=== PATIENT | male | born 1985 | race Two or more races ===

== ENCOUNTER 2025-01-28 01:55 | Inpatient (IN) | payer MEDICAID ==
[~2025-01-28] VITALS: Ht 170.2 cm; Wt 85.9 kg
[2025-01-29] VITALS (13 sets, daily range): BP systolic 117–146; BP diastolic 75–107; PULSE 84–100; RESP 16–23; TEMP 97.4–98.4; O2SAT 92–100
[2025-01-29] MEDS ORDERED: FURO20TA4 PO (02:30)
[2025-01-29] MEDS ORDERED: MORPHINE SULFATE INJ 2 MG/ml SYRG IV PRN (04:00)
[2025-01-29] MEDS: PANTOPRAZOLE 40 MG/10 ML VIAL INJ IV ONE (04:41)
[2025-01-29 06:09] LABS: Basophils # (auto) 0.1 10 ^3/uL (0-0.2); Eosinophils # (auto) 0.2 10 ^3/uL (0-0.8); Hemoglobin 14.2 g/dL (13.5-17.5); Neutrophils # (auto) 2.5 10 ^3/uL (1.6-8.6); Nucleated Red Blood Cells % 0.2 %
[2025-01-29 06:14] LABS: Eosinophils % (auto) 3.1 % (0.0-7.0); Hematocrit 41.2 % (41.0-53.0); Lymphocytes # (auto) 2.9 10 ^3/uL (0.4-5.4); Lymphocytes % (auto) 44.2 % (10.0-50.0); Mean Corpuscular Hemoglobin 26.6 pg (28.0-32.0); Mean Corpuscular Hgb Conc. 34.4 g/dL (32.0-36.0); Mean Corpuscular Volume 77.2 fL (80.0-100.0); Monocytes # (auto) 0.9 10 ^3/uL (0-1.3); Monocytes % (auto) 13.4 % (0.0-12.0); Neutrophils % (auto) 38.3 % (37.0-80.0); Platelet Count (auto) 254 10^3/uL (140-450); Red Blood Cells 5.33 10^6/uL (4.5-5.90); Red Cell Distribution Width 14.3 % (11.8-14.3); White Blood Cell 6.6 10^3/uL (4.4-10.8)
[2025-01-29 06:33] LABS: INR 1.02 (0.9-1.15); Prothrombin Time 10.8 sec (9.3-11.8)
[2025-01-29 06:47] LABS: Anion Gap 8 (5-15); Aspartate Aminotransferase 26 U/L (13-40); BUN/Creatinine Ratio 11.3 (10.0-20.0); Blood Urea Nitrogen 14 mg/dL (9-23); Calcium 9.1 mg/dL (8.7-10.4); Carbon Dioxide 27 mmol/L (20-31); Chloride 106 mmol/L (98-107); Glucose 102 mg/dL (74-106); Magnesium 2.1 mg/dL (1.6-2.6); Potassium 4.3 mmol/L (3.5-5.1); Sodium 141 mmol/L (136-145); Total Protein 6.3 g/dL (5.7-8.2)
[2025-01-29 06:48] LABS: Bilirubin, Total 0.6 mg/dL (0.2-1.0)
[2025-01-29 06:49] LABS: Alanine Aminotransferase 87 U/L (7-40); Alkaline Phosphatase 38 U/L (46-116)
--- NOTE | 2025-01-29 06:55 | DVHHPRES ---
History of Present Illness Resident Creating Document: OCTAVIO KERNSAXEL RESIDENT History of Present Illness Patient is a 39-year-old male with no significant past medical history was transferred from [facility] after being admitted there chest pain and shortness of breath. Patient reports that he was admitted in the [facility] about a month ago with a similar complaint when they diagnosed him with congestive heart failure with echo showing LVEF 15-20%, moderately enlarged right ventricle, moderately dilated left atrium and the patient was sent home on Lasix. He reported to be doing fine until the 26 of January when he started having chest pain which he described as chest tightness has a someone was standing on his chest, occurred while he was at rest following which he went to the hospital for further evaluation. Patient is being transferred to [facility] for a possible left heart catheterization Past medical history: None Past surgical history: None Social history: Patient smokes half a pack of cigarettes per day, heavy alcohol use about 5-6 drinks per day, denies marijuana and any other drug use Home medications: Lasix recently prescribed 20 mg per day Review of Systems Review of Systems Seen and examined at the bedside Denies chest pain, shortness of breath, palpitations Denies nausea vomiting abdominal pain Allergies: Coded Allergies: Penicillins (Verified Allergy, Unknown, 01/29/25) Medications Current Medications Medications Dose Ordered Sig/Adilene Route Start Time Stop Time Status Last Admin Dose Admin Nitroglycerin 0.4 mg Q5MINP PRN SL 01/29/25 04:00 Morphine Sulfate 2 mg Q30M PRN IV 01/29/25 04:00 Aspirin 81 mg DAILY PO 01/29/25 10:00 Exam Vital Signs Vital Signs Date Time Temp Pulse Resp B/P (MAP) Pulse Ox O2 Delivery O2 Flow Rate FiO2 01/29/25 05:00 97.6 89 19 117/90 (99) 97 97.6 01/29/25 02:13 Room Air* 0 21 Exam Gen - no pallor, no icterus, no cyanosis, no clubbing, no LAD, no edema . Skin - Patients skin is warm and dry. HEENT - normocephalic, atraumatic, moist mucous membranes. Neck - full ROM, no LAD, no JVD Pulmonary - B/L equal breath sounds, no crackles, no wheezing, no stridor. cardiovascular - regular S1,S2 heard, no added sounds, no murmurs heard. peripheral pulses normal radial 2+, pedal 2+. capillary refill normal <2 secs. GI - soft, nontender abdomen. no hepatospleenomegaly. Bowel sounds normoactive Neurological - Patient is A/O X 3 . Bilateral upper extremity strength 5/5, bilateral lower extremity strength 5/5, no facial droop, normal speech, no tremor, no sensory deficiets. Labs/Xrays Labs Test 01/29/25 05:13 Range/Units White Blood Count 6.6 4.4-10.8 10^3/uL Red Blood Count 5.33 4.5-5.90 10^6/uL Hemoglobin 14.2 13.5-17.5 g/dL Hematocrit 41.2 41.0-53.0 % Mean Corpuscular Volume 77.2 L 80.0-100.0 fL Mean Corpuscular Hemoglobin 26.6 L 28.0-32.0 pg Mean Corpuscular Hemoglobin Concent 34.4 32.0-36.0 g/dL Red Cell Distribution Width 14.3 11.8-14.3 % Platelet Count 254 140-450 10^3/uL Mean Platelet Volume 8.9 6.9-10.8 fL Neutrophils (%) (Auto) 38.3 37.0-80.0 % Lymphocytes (%) (Auto) 44.2 10.0-50.0 % Monocytes (%) (Auto) 13.4 H 0.0-12.0 % Eosinophils (%) (Auto) 3.1 0.0-7.0 % Basophils (%) (Auto) 1.0 0.0-2.0 % Neutrophils # (Auto) 2.5 1.6-8.6 10 ^3/uL Lymphocytes # (Auto) 2.9 0.4-5.4 10 ^3/uL Monocytes # (Auto) 0.9 0-1.3 10 ^3/uL Eosinophils # (Auto) 0.2 0-0.8 10 ^3/uL Basophils # (Auto) 0.1 0-0.2 10 ^3/uL Nucleated Red Blood Cells 0.2 % Assessment/Plan Assessment/Plan Acute chest pain, possible ACS Heart failure with reduced ejection fraction, no exacerbation ? Ischemic cardiomyopathy - chest x-ray pending - aspirin - cardiology consulted, Dr. Florian accepted the patient for possible left heart catheterization - NPO - PT PTT pending PUD prophylaxis: Protonix Goals of care discussed with the patient for over 27 minutes. Full code Time spent: 35 minutes Plan discussed with Dr. He Plan discussed with: Patient My Orders Orders - MORALES KERNS Procedure Category Date Status Time Admit ADMIT 01/29/25 Transmitted 03:59 Nitroglycerin PHA 01/29/25 In Process Sublingual (Ntrostat 04:00 Morphine Sulfate PHA 01/29/25 In Process Injection 04:00 Oxygen By Nasal RT 01/29/25 Transmitted Cannula 03:59 Stat Ekg For Chest MARIA C 01/29/25 In Process Pain 03:59 Notify Md Of Changes MARIA C 01/29/25 In Process From Base 03:59 Events Traffic Controller For [facility] 01/29/25 In Process 24 Hours 03:59 Emergency Dysrhythmia [facility] 01/29/25 In Process Protocol 03:59 Rhythm Strips Once [facility] 01/29/25 In Process Every Shift 03:59 Chest Xray 1 View XY 01/29/25 Logged 04:01 Echo 2d Mode Cardiac US 01/29/25 Logged DOP 04:01 Electrocardigram EKG 01/29/25 Logged 04:01 Comprehensive LAB 01/29/25 In Process Metabolic Panel 04:01 PTPTT LAB 01/29/25 In Process 04:01 Thyroid Stimulating LAB 01/29/25 In Process Hormone 04:01 Magnesium LAB 01/29/25 In Process 04:01 Lipid Panel LAB 01/30/25 Verified 04:00 Aspirin Tablet PHA 01/29/25 In Process 10:00 Urinalysis LAB 01/29/25 Logged 04:01 Drug Screen LAB 01/29/25 Logged 04:01 * Cardiology Consult CONS 01/29/25 Transmitted 04:01 Npo (Nothing By DIET 01/29/25 Transmitted Mouth) Diet Breakfast Mrsa Screen CINDI 01/29/25 Logged 04:32 Date of Service: Jan 29, 2025 Billing Provider: KEMI HE MD Common Visit Codes: [id number] INP/OBS CARE (HIGH) Secondary Visit Codes: [id number] CARE PLAN 30 MINUTES MORALES KERNS RESIDENT Jan 29, 2025 06:55
[2025-01-29] MEDS: ATORVASTATIN 20 MG TAB PO ONE (07:30)
--- NOTE | 2025-01-29 08:21 | DVHINCON2 ---
Date of service: Jan 29, 2025 History of Present Illness HPI Patient is a 39-year-old gentleman who originally presented to [facility] for chest pain and shortness of breath. Over there, the patient had a nuclear stress test and the result was abnormal (inferior ischemia) and the patient was transferred to this facility for further care/cardiac catheterization. It is of note that the patient is known to have heart failure and never had ischemic workup done before. Past history also includes alcohol and substance abuse. In [facility], BNP was 313. D-dimer was 0.71. Troponin (regular type) was 0.04-0.03. Urine toxicology was positive for opiates. Echocardiogram of January 27, 2025 (performed in [facility] in the hospital) revealed ejection fraction of 20-25%, stage III diastolic dysfunction, [id number] PI/TR/MR, right ventricular systolic pressure of 52 mm Hg. Chest x-ray in [facility] revealed mild cardiomegaly. CT angio of the lungs in [facility] ruled out pulmonary emboli. Home Meds Reported Medications Furosemide (Furosemide) 20 Mg Tab, 0.5 TAB PO QAM 01/29/25 Past Medical History Others Past medical history includes hypertension, heart failure, hypothyroidism, alcohol and substance abuse. Patient Family History: Patient reports no known family medical history. Smoker: Positive Alocohol: Moderate Drugs: Amphetimines Lives with: With family Review of Systems Constitutional: No symptom reported Ears, Nose, & Throat: No symptom reported Pulmonary/Respiratory: Dyspnea Cardiovascular: Chest Pain All Other Systems 14 point review of system was performed. Relevant findings as per above and as per HPI. Otherwise negative. H&P Exam Vital Signs Vital Signs Date Time Temp Pulse Resp B/P (MAP) Pulse Ox O2 Delivery O2 Flow Rate FiO2 01/29/25 05:00 97.6 89 19 117/90 (99) 97 97.6 01/29/25 02:13 Room Air* 0 21 General Appeara: Well developed Head Exam: Normal inspection Neck Exam: Normal inspection Eye Exam: bilateral eye PERRL Mouth: Normal Inspection Pulmonary/Respiratory: Lungs clear Cardiovascular/Chest: Normal inspection, Regular rate, Systolic murmur Peripheral Pulses: 2+ carotid (R), 2+ carotid (L), 2+ femoral (R), 2+ femoral (L), 2+ dorsalis pedis (R), 2+ dorsalis pedis (L), 2+ Radial (R), 2+ Radial (L) Abdominal Exam: Normal bowel sounds, Soft Neuro/Mental St: Alert, Oriented Appearance: Appropriate appearance Eye contact/ Speech: Cooperative Labs/Xrays Labs Test 01/29/25 05:13 Range/Units White Blood Count 6.6 4.4-10.8 10^3/uL Red Blood Count 5.33 4.5-5.90 10^6/uL Hemoglobin 14.2 13.5-17.5 g/dL Hematocrit 41.2 41.0-53.0 % Mean Corpuscular Volume 77.2 L 80.0-100.0 fL Mean Corpuscular Hemoglobin 26.6 L 28.0-32.0 pg Mean Corpuscular Hemoglobin Concent 34.4 32.0-36.0 g/dL Red Cell Distribution Width 14.3 11.8-14.3 % Platelet Count 254 140-450 10^3/uL Mean Platelet Volume 8.9 6.9-10.8 fL Neutrophils (%) (Auto) 38.3 37.0-80.0 % Lymphocytes (%) (Auto) 44.2 10.0-50.0 % Monocytes (%) (Auto) 13.4 H 0.0-12.0 % Eosinophils (%) (Auto) 3.1 0.0-7.0 % Basophils (%) (Auto) 1.0 0.0-2.0 % Neutrophils # (Auto) 2.5 1.6-8.6 10 ^3/uL Lymphocytes # (Auto) 2.9 0.4-5.4 10 ^3/uL Monocytes # (Auto) 0.9 0-1.3 10 ^3/uL Eosinophils # (Auto) 0.2 0-0.8 10 ^3/uL Basophils # (Auto) 0.1 0-0.2 10 ^3/uL Nucleated Red Blood Cells 0.2 % Prothrombin Time 10.8 9.3-11.8 sec Prothrombin Time INR 1.02 0.9-1.15 Activated Partial Thromboplast Time 25.0 24.5-34.5 SEC Sodium Level 141 136-145 mmol/L Potassium Level 4.3 3.5-5.1 mmol/L Chloride Level 106 98-107 mmol/L Carbon Dioxide Level 27 20-31 mmol/L Anion Gap 8 5-15 Blood Urea Nitrogen 14 9-23 mg/dL Creatinine 1.24 0.700-1.30 mg/dL Glomerular Filtration Rate Calc 76 >90 mL/min BUN/Creatinine Ratio 11.3 10.0-20.0 Serum Glucose 102 74-106 mg/dL Calcium Level 9.1 8.7-10.4 mg/dL Magnesium Level 2.1 1.6-2.6 mg/dL Total Bilirubin 0.6 0.2-1.0 mg/dL Aspartate Amino Transferase (AST) 26 13-40 U/L Alanine Aminotransferase (ALT) 87 H 7-40 U/L Alkaline Phosphatase 38 L 46-116 U/L Troponin I High Sensitivity 23 </=54 ng/L B-Type Natriuretic Peptide 238.01 0-100 pg/mL Total Protein 6.3 5.7-8.2 g/dL Albumin 4.0 3.2-4.8 g/dL Thyroid Stimulating Hormone (TSH) 5.87 H 0.55-4.78 uIU/mL Assessment/Plan Plan Patient is a 39-year-old gentleman who originally presented to [facility] for chest pain and shortness of breath. Over there, the patient had a nuclear stress test and the result was abnormal (inferior ischemia) and the patient was transferred to this facility for further care/cardiac catheterization. It is of note that the patient is known to have heart failure and never had ischemic workup done before. Past history also includes alcohol and substance abuse. In [facility], BNP was 313. D-dimer was 0.71. Troponin (regular type) was 0.04-0.03. Urine toxicology was positive for opiates. Echocardiogram of January 27, 2025 (performed in [facility] in the hospital) revealed ejection fraction of 20-25%, stage III diastolic dysfunction, [id number] PI/TR/MR, right ventricular systolic pressure of 52 mm Hg. Chest x-ray in [facility] revealed mild cardiomegaly. CT angio of the lungs in [facility] ruled out pulmonary emboli. Not in acute distress. No JVD. Mucosa is pink and wet. No carotid bruit. Lungs are clear to auscultation. Cardiac: Regular, no thrill/gallop. Systolic murmur 2/6 in the apex is heard. Abdomen is soft. Bowel sound is positive. There is no gross mass/hepatomegaly. Extremities do not reveal edema. Past medical history includes hypertension, heart failure, hypothyroidism, alcohol and substance abuse. Creatinine: 1.24 Potassium: 4.3 Troponin (high sensitive): 23 BNP: 231.01 Patient is a 39-year-old gentleman who presented with chest discomfort to other facility. Is known to have heart failure. Nuclear stress test performed in [facility] revealed inferior ischemia. Patient has never had previous ischemic workup. Was sent to our facility for ischemic workup/cardiac catheterization Abnormal nuclear stress test Systolic heart failure Chest discomfort Hypertension Substance abuse Alcohol abuse Cardiac suggestion for management: Manage on telemetry Follow-up electrolytes and kidney function tests and correct abnormalities Cardiac catheterization Guideline directed medical therapy for systolic heart failure is advised Further evaluation and management depends on the above and clinical course Thank you for consultation A total of 75 minutes was spent reviewing the patient record, examining the patient, making a diagnostic and therapeutic plan, discussing this plan with medical personnel, following up on diagnostic studies and following the patient for clinical stability excluding any and all procedures. At least 50% of this time was spent in direct, wjgy-[id number] contact. Thank you for allowing me to participate in this patient's care. Further recommendations will depend on patient's clinical course. Please do not hesitate to contact me if you have any questions or concerns. This medical document was created using electronic medical record system with [employer] computerized dictation system. Although this document has been carefully reviewed, there may still be some phonetic and typographical errors. These areas are purely typographical due to the imperfection of the software programs, and do not reflect any compromise in the patient's medical care. Plan discussed with: Patient, Other (Nurse) TERRELL SHI MD Jan 29, 2025 08:21
[2025-01-29] MEDS: IODIXANOL 320MG/ML 100ML BTL IV ONE (09:28)
[2025-01-29] MEDS: VERAPAMIL 2.5MG/ML INJ 2ML VIAL IV ONE (09:30)
[2025-01-29] MEDS: fentaNYL CITRATE 100 MCG/2 ML VL ONE (09:30)
[2025-01-29] MEDS: ANGIOMAX 250 MG VIAL IV ONE (09:30)
[2025-01-29] MEDS: LIDOCAINE 2%HCL (LOCAL ANESTH.) INJ 20ML MDV ONE (09:31)
[2025-01-29] MEDS: SODIUM CHL 0.9% 0 ML ONE (09:31)
[2025-01-29] MEDS: MIDAZOLAM HCL 2MG/2ML 2ml VIAL (1mg/ml) ONE (09:31)
[2025-01-29] MEDS: ASPirin 81 mg TAB PO SCH (10:00)
--- NOTE | 2025-01-29 10:59 | DVHOP2 ---
Operative Report Procedures performed: Left heart catheterization and bilateral coronary angiogram Moderate sedation Diagnosis: No angiographic evidence for epicardial coronary artery disease (normal coronaries) LVEDP of 20 mm Hg Known systolic heart failure Nonischemic cardiomyopathy Cardiac suggestion for management: Optimized medical therapy Guideline directed medical therapy for systolic heart failure Consider LifeVest Lifestyle and risk factor modifications Findings: LVEDP: 20 mm Hg There was no transaortic valve pressure gradient Left main was coming off the left sinus of Valsalva. It was free of disease. Ramus intermedius: Ramus intermedius was a very large branching vessel and came off the left main. It was free of disease throughout its course and branches. Lad: Lad was coming off the left main. It was free of disease throughout its course and branches LCX: LCX was coming off the left main. It was free of disease throughout its course and branches. RCA: RCA was coming off the right sinus of Valsalva. It was a dominant vessel and provided RPDA. RCA throughout its course and branches was free of disease. Presentation: Patient is a 39-year-old gentleman who is known to have systolic heart failure. He was in [facility]. He was admitted there for chest discomfort. Echocardiogram revealed significantly reduced systolic function. Nuclear stress test was performed which questioned inferior ischemia. Patient was sent to our facility for ischemic workup/cardiac catheterization. Procedure: After obtaining informed consent, the patient was brought to the hemodialysis lab technician. He was prepped and draped in sterile fashion. Right radial artery was used for access site. 2 mg of Versed and 50 mcg of fentanyl were used for moderate sedation. Using modified Seldinger technique and under fluoroscopy guidance, the right radial artery was accessed and a 6 Italian slender sheath was inserted into it. 2.5 mg of verapamil and 100 mcg of nitroglycerin were given as a cocktail into right radial sheath. A 5 Italian tiger 4 diagnostic catheter was used to perform left heart catheterization (obtaining pressures) and bilateral coronary angiography. There was no indication for any transcatheter revascularization. Coronaries were free of disease. Patient tolerated the procedure with no complication. There was no dissection/hematoma/perforation. Total bleeding was less than 5 mL. Right radial artery access site was managed by deploying a TR band. Fluoroscopy time: 2.3 minutes contrast: 30 mL of TaiipaTERRELL Green MD Jan 29, 2025 10:59
[2025-01-29] MEDS: HEPARIN SODIUM (PORCINE) 5000 UNITS/ML 1ML VIAL ONE (11:03)
--- NOTE | 2025-01-29 13:57 | DVH ---
CHEST RADIOGRAPH Indication: chest pain, SOB Technique: Single frontal view of the chest was obtained Comparison: None FINDINGS: Lines and Tubes: None Lungs: No focal consolidation. Pleura: No effusion. No pneumothorax. Cardiomediastinal contours: Cardiomegaly Bones: No acute osseous abnormality. IMPRESSION: No acute cardiopulmonary disease.
[2025-01-29] MEDS: FUROSEMIDE 20 MG/2 ML VIAL IV ONE (16:44)
[2025-01-29] MEDS: METOPROLOL TARTRATE 25 MG TAB PO ONE (16:45)
[2025-01-29] MEDS: HYDROcodone-ACET 5/325MG TAB PO PRN (16:46)
[2025-01-29] MEDS: SPIRONOLACTONE 25 MG TAB PO ONE (16:47)
--- NOTE | 2025-01-29 20:14 | DVHPNRES ---
Progress Note Date Seen: Jan 29, 2025 Resident Creating Document: CLARICE BECK SONA Has the PT tested + for MRSA If YES, has PT been informed?: No Medical Necessity Reason Pt with a Central, PICC or Fol: No Subjective Review of Systems Patient seen and examined at the bedside. Patient is still complaining of mild chest discomfort Patient reports: No new complaints, Feels better Changes from previous H/P or p: Changes Objective vital signs Vital Sign Date Time Temp Pulse Resp B/P (MAP) Pulse Ox O2 Delivery O2 Flow Rate FiO2 01/29/25 16:45 101 117/85 01/29/25 16:30 98.0 20 100 98.0 01/29/25 08:00 Room Air* 0 21 Total Intake and Output 01/28/25 01/28/25 01/29/25 15:00 23:00 07:00 Intake Total 0 ml Balance 0 ml medications Current Medications Medications Dose Ordered Sig/Adielne Route Start Time Stop Time Status Last Admin Dose Admin Nitroglycerin 0.4 mg Q5MINP PRN SL 01/29/25 04:00 Morphine Sulfate 2 mg Q30M PRN IV 01/29/25 04:00 Aspirin 81 mg DAILY PO 01/29/25 10:00 Atorvastatin Calcium 80 mg HS PO 01/30/25 22:00 Furosemide 20 mg DAILY IV 01/30/25 10:00 Spironolactone 12.5 mg DAILY PO 01/30/25 10:00 Sacubitril/ Valsartan 1 tab BID PO 01/29/25 22:00 Metoprolol Tartrate 12.5 mg BID PO 01/29/25 22:00 Empaglifozin 10 mg DAILY PO 01/30/25 10:00 Acetaminophen/ Hydrocodone Bitart 1 tab Q4HPRN PRN PO 01/29/25 16:15 01/29/25 16:46 1 TAB Examination General Appearance: Alert, Oriented X3, Cooperative, No acute distress HEENT: Atraumatic, PERRLA, EOMI, Mucous membrane moist/pink Respiratory: Clear to auscultation, Normal air movement Cardiovascular: Regular rate, Normal S1, Normal S2, No murmurs, no chest wall tenderness Abdominal: Normal bowel sounds, Soft, No tenderness, No hepatospenomegaly, No masses Extremities: No clubbing, No cyanosis, No edema, Normal pulses, No tenderness/swelling Skin: No rashes, No breakdown, No significant lesion Neuro: Normal gait, Normal speech, Strength at 5/5 X4 ext, Normal tone, Sensation intact, Cranial nerves 3-12 NL, Reflexes 2+ Psych/Mental Status: Mental status NL, Mood NL laboratory and microbiology Laboratory Tests 01/29/25 05:13 Test 01/29/25 05:13 Range/Units Serum Glucose 102 74-106 mg/dL Labs and/or images reviewed: Labs reviewed by me, Image(s) reviewed by me Problem List/Assessment/Plan Problem List/Assessment/Plan Chest pain, likely due to heart failure Acute on chronic systolic heart failure Transaminitis History of disorder * Per [facility] record, stress test showed inferior wall ischemia, chest CT angio was normal * EKGs shows normal sinus rhythm and no significant ST or T-wave changes * Serial trop I and BNP are a with a normal limits * Per [facility], echo from 1 month back showed LVEF 20-25% Plan/recommendation * Cardiology consulted, performed left heart catheterization, normal coronary arteries * IV diuretic Lasix 20 mg daily * GDM D, Jardiance 10 mg, spironolactone 12.5 mg daily, Entresto b.i.d. and metoprolol daily * Check echocardiogram DIET: Cardiac diet DVT PROPHYLAXIS: Lovenox GI PROPHYLAXIS:: Protonix CODE STATUS: Goal of care discussed for more than 18 minutes, full code DISPOSITION: Telemetry Patient's status and plan discussed with the patient. Case discussed with Dr. Lelsie. Plan discussed with: Patient, Other (RN) My Orders My Orders Orders - CLARICE BECK Procedure Category Date Status Time Atorvastatin (Lipitor) PHA 01/30/25 In Process 22:00 Furosemide Injection PHA 01/30/25 In Process (Lasix Injection) 10:00 Spironolactone PHA 01/30/25 In Process (Aldactone) 10:00 Sacubitril-Valsartan PHA 01/29/25 In Process (Entresto 24-26 Mg 22:00 Metoprolol Tartrate PHA 01/29/25 In Process Tablet (Lopressor Ta 22:00 Empagliflozin PHA 01/30/25 In Process (Jardiance) 10:00 Cardiac DIET 01/29/25 Transmitted Diet-2gna,Lofat,Lochol Lunch Hydrocodone-Acet PHA 01/29/25 In Process 5/325mg Tab ([place] 16:15 Date of Service: Jan 29, 2025 Billing Provider: EVAN LESLIE MD Common Visit Codes: [id number] INP/OBS CARE(HIGH) CLARICE BECK Jan 29, 2025 20:14 EVAN LESLIE MD Feb 02, 2025 14:41
[2025-01-29] MEDS: NITROGLYCERIN 0.4 MG SL TAB SL PRN (20:16)
[2025-01-29] MEDS: ENOXAPARIN SOD 40 MG/0.4 ML SYRINGE SC ONE (20:22)
--- NOTE | 2025-01-29 20:45 | ECG ---
[facility] Test Date: 2025-01-29 Test Time: 20:43:50 Pat Name: LIONEL HARTMAN Department: Room: 0296T B Gender: M Faa Certified Powerplant Mechanic: ROULA : 1985 Requested By: MORALES KERNS Order Number: [id number] Reading MD: Nav Ramos Measurements Intervals Elmore Rate: 89 P: 3 LA: 142 QRS: 3 QRSD: 77 T: -83 QT: 460 QTc: 560 Interpretive Statements Sinus rhythm Probable left atrial enlargement Left ventricular hypertrophy Inferior infarct, old Anterior Q waves, possibly due to LVH Lateral leads are also involved Prolonged QT interval Electronically Signed On 02-03-2025 20:16:35 PDT by Nav Ramos Please click the below link to view image of tracing.
[2025-01-29] MEDS: METOPROLOL TARTRATE 25 MG TAB PO SCH (21:15)
[2025-01-29] MEDS: SACUBITRIL-VALSARTAN 24mg/26mg TAB PO SCH (21:15)
[2025-01-29] MEDS ORDERED: SACUBITRIL-VALSARTAN 24mg/26mg TAB PO SCH (22:00)
[2025-01-29 23:19] LABS: Urine Bacteria None Seen /hpf (None Seen)
[2025-01-29 23:37] LABS: Urine Blood Negative /uL (Negative); Urine Clarity Clear (Clear); Urine Color Colorless (Yellow); Urine Protein, UAD Negative (Negative); Urine Specific Gravity 1.005 (1.001-1.035); Urine Squamous Epithelial Cell None Seen /hpf (<5); Urine Urobilinogen Normal (Negative); Urine WBC < 1 /HPF (0-3)
[2025-01-29 23:44] LABS: Benzodiazephine Screen, Urine Pos (NEGATIVE)
[2025-01-29 23:45] LABS: Amphetamine Screen, Urine Neg (NEGATIVE); Barbiturate Scree,Urine Neg (NEGATIVE); Cannabinoid Screen, Urine Neg (NEGATIVE); Cocaine Screen, Urine Neg (NEGATIVE); Opiate Scree,Urine Neg (NEGATIVE); Phencyclidine Screen, Urine Neg (NEGATIVE)
[2025-01-30 01:00] VITALS: BP 125/94; PULSE 82; RESP 19; TEMP 97.7; O2SAT 98
[2025-01-30 05:00] VITALS: BP 119/82; PULSE 91; RESP 18; TEMP 97.4; O2SAT 97
[2025-01-30 07:19] LABS: Basophils # (auto) 0.1 10 ^3/uL (0-0.2); Basophils % (auto) 1.1 % (0.0-2.0); Eosinophils # (auto) 0.1 10 ^3/uL (0-0.8); Eosinophils % (auto) 2.1 % (0.0-7.0); Hematocrit 47.1 % (41.0-53.0); Hemoglobin 15.9 g/dL (13.5-17.5); Lymphocytes # (auto) 2.9 10 ^3/uL (0.4-5.4); Mean Corpuscular Hemoglobin 26.2 pg (28.0-32.0); Mean Corpuscular Hgb Conc. 33.7 g/dL (32.0-36.0); Mean Corpuscular Volume 77.7 fL (80.0-100.0); Monocytes # (auto) 0.9 10 ^3/uL (0-1.3); Neutrophils # (auto) 1.9 10 ^3/uL (1.6-8.6); Neutrophils % (auto) 31.8 % (37.0-80.0); Nucleated Red Blood Cells % 0.3 %; Platelet Count (auto) 273 10^3/uL (140-450); Red Blood Cells 6.06 10^6/uL (4.5-5.90); Red Cell Distribution Width 14.5 % (11.8-14.3); White Blood Cell 5.9 10^3/uL (4.4-10.8)
--- NOTE | 2025-01-30 07:27 | DVHPN2 ---
Progress Note - Dictate Date Seen: Jan 30, 2025 Has the PT tested + for MRSA If YES, has PT been informed?: No Medical Necessity Reason Pt with a Central, PICC or Fol: No vital signs Vital Sign Date Time Temp Pulse Resp B/P (MAP) Pulse Ox O2 Delivery O2 Flow Rate FiO2 01/30/25 05:00 97.4 91 18 119/82 (94) 97 97.4 01/29/25 20:00 Room Air* 0 21 Total Intake and Output 01/29/25 01/29/25 01/30/25 15:00 23:00 07:00 Intake Total 600 ml 300 ml Balance 600 ml 300 ml medications Current Medications Medications Dose Ordered Sig/Adilene Route Start Time Stop Time Status Last Admin Dose Admin Nitroglycerin 0.4 mg Q5MINP PRN SL 01/29/25 04:00 01/29/25 20:16 0.4 MG Aspirin 81 mg DAILY PO 01/29/25 10:00 Atorvastatin Calcium 80 mg HS PO 01/30/25 22:00 Furosemide 20 mg DAILY IV 01/30/25 10:00 Spironolactone 12.5 mg DAILY PO 01/30/25 10:00 Sacubitril/ Valsartan 1 tab BID PO 01/29/25 22:00 01/29/25 21:15 1 TAB Metoprolol Tartrate 12.5 mg BID PO 01/29/25 22:00 01/29/25 21:15 12.5 MG Empaglifozin 10 mg DAILY PO 01/30/25 10:00 Acetaminophen/ Hydrocodone Bitart 1 tab Q4HPRN PRN PO 01/29/25 16:15 01/29/25 21:15 1 TAB Enoxaparin Sodium 40 mg DAILY SC 01/30/25 10:00 laboratory and microbiology Laboratory Tests 01/30/25 06:03 Test 01/30/25 06:03 Range/Units Serum Glucose Pending Assessment/Plan HPI Patient is a 39-year-old gentleman who originally presented to [facility] for chest pain and shortness of breath. Over there, the patient had a nuclear stress test and the result was abnormal (inferior ischemia) and the patient was transferred to this facility for further care/cardiac catheterization. It is of note that the patient is known to have heart failure and never had ischemic workup done before. Past history also includes alcohol and substance abuse. In [facility], BNP was 313. D-dimer was 0.71. Troponin (regular type) was 0.04-0.03. Urine toxicology was positive for opiates. Echocardiogram of January 27, 2025 (performed in [facility] in the hospital) revealed ejection fraction of 20-25%, stage III diastolic dysfunction, [id number] PI/TR/MR, right ventricular systolic pressure of 52 mm Hg. Chest x-ray in [facility] revealed mild cardiomegaly. CT angio of the lungs in [facility] ruled out pulmonary emboli. Angiogram: (01/29/2025) No angiographic evidence for epicardial coronary artery disease (normal coronaries) LVEDP of 20 mm Hg Known systolic heart failure Nonischemic cardiomyopathy Cardiology Recommendations: Proceed with close observation for overt signs of fluid overload Proceed with strict intakes, outputs, and daily weights Proceed with close rate and rhythm surveillance Proceed with close hemodynamic surveillance Proceed with optimized blood pressure control Transfuse to sustain HGB levels above 7.0 Sustain Magnesium level greater than 2.0 Sustain Potassium level greater than 4.0 Follow up renal function and electrolytes Encourage the use of LifeVest Optimize guideline-directed medical therapy (GDMT) for heart failure with reduced ejection fraction, including beta-fer (e.g., carvedilol), MATTHEW inhibitor or ARNI (e.g., Entresto), mineralocorticoid receptor antagonist (e.g., spironolactone), and SGLT2 inhibitor (e.g., dapagliflozin). Continue diuresis as tolerated to manage volume overload. Encourage strict risk factor modification with an emphasis on cessation of tobacco and alcohol use. Recommend close outpatient cardiology follow-up within one-week post-discharge to monitor response to therapy, reinforce lifestyle changes, and ensure continuity of care. Management in Telemetry. Will proceed to follow from a cardiac perspective Further recommendations per clinical progression All available labs, EKGs, and images were personally reviewed Patient's status, findings, and plan of care was discussed and reviewed with supervising physician Dr. Pelayo, who is in agreement with current plan of care. Plan of care discussed with and agreed upon by patient/family/Primary RN. Prognosis: Guarded Thank you for allowing me to participate in the care of this patient. Further recommendations will depend on clinical progression, hospitalist, and other consultants. Will continue to follow with Primary. If you have any questions, please do not hesitate to contact me. A total of 50 minutes was spent reviewing the patient record, examining the patient, making a diagnostic and therapeutic plan, discussing this plan with medical personnel, following up on diagnostic studies and following the patient for clinical stability excluding any and all procedures. At least 50% of this time was spent in direct, mitb-ev-glom contact. Plan discussed with: Patient VALERIA ZEPEDA NP Jan 30, 2025 07:27
[2025-01-30 07:36] LABS: Alanine Aminotransferase 69 U/L (7-40); Albumin 4.2 g/dL (3.2-4.8); Alkaline Phosphatase 41 U/L (46-116); Anion Gap 10 (5-15); Aspartate Aminotransferase 20 U/L (13-40); BUN/Creatinine Ratio 10.7 (10.0-20.0); Bilirubin, Total 0.9 mg/dL (0.2-1.0); Blood Urea Nitrogen 13 mg/dL (9-23); Calcium 9.7 mg/dL (8.7-10.4); Carbon Dioxide 26 mmol/L (20-31); Chloride 106 mmol/L (98-107); Cholesterol 203 mg/dL (< 200); Glucose 96 mg/dL (74-106); HDL Cholesterol 39 mg/dL (40-59); LDL Cholesterol 149 mg/dL (< 100); Potassium 4.1 mmol/L (3.5-5.1); Sodium 142 mmol/L (136-145); Total Protein 6.8 g/dL (5.7-8.2); Triglycerides 180 mg/dL (< 150)
[2025-01-30 08:00] VITALS: PULSE 105; PULSE 98
[2025-01-30 09:00] VITALS: BP 131/97; PULSE 98; RESP 20; TEMP 96.3; O2SAT 95
[2025-01-30] MEDS: ENOXAPARIN SOD 40 MG/0.4 ML SYRINGE SC SCH (10:00)
[2025-01-30] MEDS: FUROSEMIDE 20 MG/2 ML VIAL IV SCH (10:03)
[2025-01-30] MEDS: EMPAGLIFLOZIN 10 MG TAB PO SCH (10:04)
[2025-01-30] MEDS: SPIRONOLACTONE 25 MG TAB PO SCH (10:04)
[2025-01-30] MEDS ORDERED: ATOR40TA52 PO (11:42)
[2025-01-30] MEDS ORDERED: EMPA1TAB PO (12:44)
[2025-01-30] MEDS ORDERED: FURO1TAB33 PO (12:44)
[2025-01-30] MEDS ORDERED: SACU1TAB PO (12:44)
[2025-01-30] MEDS ORDERED: SPIR25TA8 PO (12:44)
[2025-01-30] MEDS ORDERED: CARV3.1240 PO (12:44)
[2025-01-30 13:00] VITALS: BP 129/83; PULSE 92; RESP 20; TEMP 96.7; O2SAT 98
--- NOTE | 2025-01-30 14:18 | DVHDSRES ---
Discharge Summary Date of Admission Resident Creating Document: CLARICE BECK RESDIENT Jan 29, 2025 at 01:50 Date of Discharge: Jan 30, 2025 Admitting Diagnosis Acute on chronic systolic heart failure Labs/Diagnostic Data: Laboratory Results Test 01/30/25 06:03 01/29/25 22:45 01/29/25 07:49 01/29/25 05:13 White Blood Count 5.9 10^3/uL (4.4-10.8) Red Blood Count 6.06 10^6/uL (4.5-5.90) Hemoglobin 15.9 g/dL (13.5-17.5) Hematocrit 47.1 % (41.0-53.0) Mean Corpuscular Volume 77.7 fL (80.0-100.0) Mean Corpuscular Hemoglobin 26.2 pg (28.0-32.0) Mean Corpuscular Hemoglobin Concent 33.7 g/dL (32.0-36.0) Red Cell Distribution Width 14.5 % (11.8-14.3) Platelet Count 273 10^3/uL (140-450) Mean Platelet Volume 8.8 fL (6.9-10.8) Neutrophils (%) (Auto) 31.8 % (37.0-80.0) Lymphocytes (%) (Auto) 49.0 % (10.0-50.0) Monocytes (%) (Auto) 16.0 % (0.0-12.0) Eosinophils (%) (Auto) 2.1 % (0.0-7.0) Basophils (%) (Auto) 1.1 % (0.0-2.0) Neutrophils # (Auto) 1.9 10 ^3/uL (1.6-8.6) Lymphocytes # (Auto) 2.9 10 ^3/uL (0.4-5.4) Monocytes # (Auto) 0.9 10 ^3/uL (0-1.3) Eosinophils # (Auto) 0.1 10 ^3/uL (0-0.8) Basophils # (Auto) 0.1 10 ^3/uL (0-0.2) Nucleated Red Blood Cells 0.3 % Sodium Level 142 mmol/L (136-145) Potassium Level 4.1 mmol/L (3.5-5.1) Chloride Level 106 mmol/L (98-107) Carbon Dioxide Level 26 mmol/L (20-31) Anion Gap 10 (5-15) Blood Urea Nitrogen 13 mg/dL (9-23) Creatinine 1.21 mg/dL (0.700-1.30) Glomerular Filtration Rate Calc 79 mL/min (>90) BUN/Creatinine Ratio 10.7 (10.0-20.0) Serum Glucose 96 mg/dL (74-106) Calcium Level 9.7 mg/dL (8.7-10.4) Total Bilirubin 0.9 mg/dL (0.2-1.0) Aspartate Amino Transferase (AST) 20 U/L (13-40) Alanine Aminotransferase (ALT) 69 U/L (7-40) Alkaline Phosphatase 41 U/L (46-116) Total Protein 6.8 g/dL (5.7-8.2) Albumin 4.2 g/dL (3.2-4.8) Triglycerides Level 180 mg/dL (< 150) Cholesterol Level 203 mg/dL (< 200) LDL Cholesterol 149 mg/dL (< 100) HDL Cholesterol 39 mg/dL (40-59) Urine Color Colorless (Yellow) Urine Clarity Clear (Clear) Urine pH 6.0 (5.0-9.0) Urine Specific [place] 1.005 (1.001-1.035) Urine Protein Negative (Negative) Urine Ketones Negative (Negative) Urine Blood Negative /uL (Negative) Urine Nitrite Negative (Negative) Urine Bilirubin Negative (Negative) Urine Urobilinogen Normal mg/dL (Negative) Urine Leukocyte Esterase Negative /uL (Negative) Urine RBC None seen /hpf (0 - 3) Urine Microscopic WBC < 1 /HPF (0-3) Urine Squamous Epithelial Cells None seen /hpf (<5) Urine Bacteria None seen /hpf (None Seen) Urine Glucose Normal mg/dL (Normal) Urine Opiates Screen Neg (NEGATIVE) Urine Fentanyl Screen Neg (NEGATIVE) Urine Barbiturates Screen Neg (NEGATIVE) Urine Phencyclidine Screen Neg (NEGATIVE) Urine Amphetamines Screen Neg (NEGATIVE) Urine Benzodiazepines Screen Pos (NEGATIVE) Urine Cocaine Screen Neg (NEGATIVE) Urine Cannabinoids Screen Neg (NEGATIVE) Troponin I High Sensitivity 24 ng/L (</=54) Prothrombin Time 10.8 sec (9.3-11.8) Prothrombin Time INR 1.02 (0.9-1.15) Activated Partial Thromboplast Time 25.0 SEC (24.5-34.5) Magnesium Level 2.1 mg/dL (1.6-2.6) B-Type Natriuretic Peptide 238.01 pg/mL (0-100) Thyroid Stimulating Hormone (TSH) 5.87 uIU/mL (0.55-4.78) Other Laboratory Tests 01/30/25 06:03 Brief Hx & Hospital Course: Patient is a 39-year-old male with no significant past medical history was transferred from [facility] after being admitted there chest pain and shortness of breath. Patient reports that he was admitted in the [facility] about a month ago with a similar complaint when they diagnosed him with congestive heart failure with echo showing LVEF 15-20%, moderately enlarged right ventricle, moderately dilated left atrium and the patient was sent home on Lasix. He reported to be doing fine until the 26 of January when he started having chest pain which he described as chest tightness has a someone was standing on his chest, occurred while he was at rest following which he went to the hospital for further evaluation. Patient is being transferred to [facility] for a possible left heart catheterization Past medical history: None Past surgical history: None Social history: Patient smokes half a pack of cigarettes per day, heavy alcohol use about 5-6 drinks per day, denies marijuana and any other drug use Home medications: Lasix recently prescribed 20 mg per day Hospital course: As per [facility] records (the patient underwent stress test and showed ischemic changes of inferior wall) upon consultation with Cardiology, the patient was taken up to the bobcat driver/labor, but coronary vessels were found to be normal. Per patient, he had echo at [facility] with EF 20-25%. The patient was admitted on the line of acute on chronic systolic heart failure, the patient was given IV Lasix diuretic and subsequently the patient was started on GDM T spironolactone, Jardiance, Entresto, and bisoprolol. On 01/30/2025, the patient was feeling better since admission. Discharge plan discussed with the patient and the patient discharged home. Discharge plan: Follow up with the PCP within 1 week of the discharge. Follow up with the Cardiology on outpatient basis Lasix 20 mg daily for 7 days as needed for volume overload/shortness of breath Jardiance 10 mg daily Entresto twice daily Spironolactone 25 mg daily Carvedilol 3.125 twice daily Atorvastatin 40 mg daily Operations or Procedures Patient: LIONEL CHRISTY Acct: [id number] : 1985 Loc: [facility] Age/Sex: 39/M Room: 0296T / Bed: B Attending Phy: CLARICE BECK Operative Report Procedures performed: Left heart catheterization and bilateral coronary angiogram Moderate sedation Diagnosis: No angiographic evidence for epicardial coronary artery disease (normal coronaries) LVEDP of 20 mm Hg Known systolic heart failure Nonischemic cardiomyopathy Cardiac suggestion for management: Optimized medical therapy Guideline directed medical therapy for systolic heart failure Consider LifeVest Lifestyle and risk factor modifications Findings: LVEDP: 20 mm Hg There was no transaortic valve pressure gradient Left main was coming off the left sinus of Valsalva. It was free of disease. Ramus intermedius: Ramus intermedius was a very large branching vessel and came off the left main. It was free of disease throughout its course and branches. Lad: Lad was coming off the left main. It was free of disease throughout its course and branches LCX: LCX was coming off the left main. It was free of disease throughout its course and branches. RCA: RCA was coming off the right sinus of Valsalva. It was a dominant vessel and provided RPDA. RCA throughout its course and branches was free of disease. Presentation: Patient is a 39-year-old gentleman who is known to have systolic heart failure. He was in [facility]. He was admitted there for chest discomfort. Echocardiogram revealed significantly reduced systolic function. Nuclear stress test was performed which questioned inferior ischemia. Patient was sent to our facility for ischemic workup/cardiac catheterization. Procedure: After obtaining informed consent, the patient was brought to the bobcat driver/labor. He was prepped and draped in sterile fashion. Right radial artery was used for access site. 2 mg of Versed and 50 mcg of fentanyl were used for moderate sedation. Using modified Seldinger technique and under fluoroscopy guidance, the right radial artery was accessed and a 6 Burmese slender sheath was inserted into it. 2.5 mg of verapamil and 100 mcg of nitroglycerin were given as a cocktail into right radial sheath. A 5 Burmese tiger 4 diagnostic catheter was used to perform left heart catheterization (obtaining pressures) and bilateral coronary angiography. There was no indication for any transcatheter revascularization. Coronaries were free of disease. Patient tolerated the procedure with no complication. There was no dissection/hematoma/perforation. Total bleeding was less than 5 mL. Right radial artery access site was managed by deploying a TR band. Fluoroscopy time: 2.3 minutes contrast: 30 mL of Visipaque TERRELL SHI MD Jan 29, 2025 10:59 DICTATED BY:TERRELL SHI MD DICTATED DATE/TIME:01/29/25 1059 ELECTRONICALLY SIGNED BY:TERRELL SHI MD 01/29/25 1059 ELECTRONICALLY CO-SIGNED BY: Condition at Discharge: Good Final Diagnosis/Problems List Chest pain, likely due to heart failure Acute on chronic systolic heart failure Systolic heart failure, likely due to alcohol use disorder Alcohol use disorder Dyslipidemia Ruled out ACS Hypertension Medicine nonadherence Transaminitis Discharge Disposition: Home Discharge Instruct/Medications Diet: Cardiac 2g Na,low cholest Activity: No Restrictions, As Tolerated Follow Up/Referral: Follow up with the PCP within 1 week of the discharge. Follow up with the Cardiology on outpatient basis. Medications: Tablet Lasix 20 mg daily for 7 days as needed for volume overload/shortness of breath Tablet spironolactone 25 mg daily Tablet Jardiance 10 mg daily Tablet Entresto 24/26 twice daily Tablet carvedilol 3.125 twice daily Tablet atorvastatin 40 mg daily Discharge Statement: "Patient was advised to return to the ER or call 911 if any headaches, dizziness, shortness of breath, chest pain, abdominal pain, bleeding, fevers, or worsening of medical condition. Patient was counseled about treatment plan, medications, possible side effects, patientverbalized understanding. All questions were answered to the best of my ability. This discharge took greater then 30 minutes in planning, reviewing documentation, counseling the patient, and discussing with other team members." ASSESSMENT ASSESSMENT Assessment Acute on chronic systolic heart failure Date of Service: Jan 30, 2025 Billing Provider: CAMERON PARRISH MD Common Visit Codes: 13452-QUY/OBS DISCH DAY >30min CLARICE BECK RESDIENT Jan 30, 2025 14:18 CAMERON PARRISH MD Feb 01, 2025 21:55
[2025-01-30 14:29] VITALS: BP 130/94; PULSE 95; RESP 20; TEMP 97; O2SAT 95
[2025-01-30] MEDS ORDERED: ATORVASTATIN 20 MG TAB PO SCH (22:00)
== END 2025-01-30 15:10 | disposition home or self-care (01) | DRG 192 ==
LOC: WEST WING 01-29 01:50 → TELE-WESTW 01-29 02:08
PROVIDERS: ADMIT Student in an Organized Health Care Education/Training Program; ATTEND Student in an Organized Health Care Education/Training Program
PROC: 4A023N7 Measurement of Cardiac Sampling and Pressure, Left Heart, Percutaneous Approach (ICD-10-PCS; principal; 2025-01-29)
PROC: B211YZZ Fluoroscopy of Multiple Coronary Arteries using Other Contrast (ICD-10-PCS; 2025-01-29)
DX: I11.0 Hypertensive heart disease with heart failure (principal); I42.8 Other cardiomyopathies; I50.23 Acute on chronic systolic (congestive) heart failure; E78.5 Hyperlipidemia, unspecified; E03.9 Hypothyroidism, unspecified; F10.10 Alcohol abuse, uncomplicated; R74.01 Elevation of levels of liver transaminase levels; Z79.899 Other long term (current) drug therapy; Y90.9 Presence of alcohol in blood, level not specified; Z91.148 Patient's other noncompliance with medication regimen for other reason
CPT/HCPCS: 36415; 71045; 80053; 80061; 80307; 81001; 83735; 83880; 84443; 84484; 85025; 85610; 85730; 87081; 93005; 93458; 96374; 96375; 99152; G0378; J2250; J2470; Q9967